=== PATIENT | male | born 1945 ===

== ENCOUNTER 2017-06-14 19:26 | Emergency (ER) | payer OTHER ==
[~2017-06-14] VITALS: Ht 188 cm; Wt 100.0 kg
[2017-06-14 19:27] VITALS: BP 173/91; PULSE 83; RESP 16; TEMP 98.1; O2SAT 96
[2017-06-14] MEDS ORDERED: BACT800T5 PO (20:06)
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
[2017-06-14] MEDS ORDERED: CLINDAMYCIN PHOS 600 MG/4 ML VIAL IM ONE (20:15)
== END 2017-06-14 20:47 | disposition home or self-care (01) ==
LOC: NEPK 19:26
DX: L03.011 Cellulitis of right finger (principal); I10 Essential (primary) hypertension
CPT/HCPCS: 96372